=== PATIENT | female | born 1955 | race Caucasian/White ===

== ENCOUNTER 2016-08-21 08:01 | Day surgery (SDC) | payer MEDICAID ==
[2016-08-21] MEDS ORDERED: LIDOCAINE 1% 2 ML INJ ONE (09:00)
[2016-08-21] MEDS ORDERED: PROPOFOL/EMULSION 500 MG/50 ML BOTTLE IV ONE (09:44)
[2016-08-21] MEDS ORDERED: MIDAZOLAM 2 MG/2 ML VIAL ONE (09:50)
--- NOTE | 2016-08-21 11:19 | GPN ---
[f rep st] PROCEDURE NOTE PREPROCEDURE DIAGNOSIS: Asymptomatic screening colonoscopy. POSTPROCEDURE DIAGNOSIS: Internal hemorrhoids, otherwise normal colonoscopy. PROCEDURE PERFORMED: Colonoscopy. MEDICATIONS: Monitored anesthesia care. INDICATIONS: The patient is a 60-year-old female, here for an asymptomatic screening colonoscopy. The risks and benefits of the procedure were discussed with the patient and consent obtained. Risks include, but not limited to, bleeding, perforation, and sedation. The patient is ASA class 2. PROCEDURE: The end-viewing endoscope inserted into the terminal ileum, which appears normal. The a ppendiceal orifice, cecum, ileocecal valve, ascending colon, hepatic flexure, transverse colon, sple susan flexure, descending colon, and sigmoid colon appeared normal. Retroflexed views in the rectum s howed grade 1 internal hemorrhoids. IMPRESSION: 1. Internal hemorrhoids. 2. Otherwise, normal screening colonoscopy including the terminal ileum. RECOMMENDATIONS: 1. Advance diet as tolerated. 2. Discharge to home with escort. 3. Repeat screening colonoscopy in 10 years. Thank you for allowing me to participate in the care of the patient. Please do not hesitate to call with questions. /[id number]
== END 2016-08-21 12:05 | disposition home or self-care (01) ==
LOC: FSGY 08:01
PROVIDERS: ATTEND Internal Medicine Gastroenterology
PROC: 0DJD8ZZ Inspection of Lower Intestinal Tract, Via Natural or Artificial Opening Endoscopic (ICD-10-PCS; principal; 2016-08-21 09:45)
DX: Z12.11 Encounter for screening for malignant neoplasm of colon (principal); K64.8 Other hemorrhoids; K21.9 Gastro-esophageal reflux disease without esophagitis; I10 Essential (primary) hypertension; Z88.1 Allergy status to other antibiotic agents
CPT/HCPCS: J2250; J2704

== ENCOUNTER → 2017-06-02 | Outpatient (CLI) | payer MEDICAID | LOC: FIMAGING 10:47 | PROVIDERS: ATTEND Physician Assistant Medical | DX: Z12.31 Encounter for screening mammogram for malignant neoplasm of breast (principal) ==

== ENCOUNTER 2017-08-10 02:56 | Emergency (ER) | payer MEDICAID ==
[2017-08-10 03:13] VITALS: BP 171/87
== END 2017-08-10 04:35 | disposition left against medical advice (07) ==
DX: Z53.21 Procedure and treatment not carried out due to patient leaving prior to being seen by health care provider (principal)